=== PATIENT | female | born 2000 | race African-American/Black ===

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

== ENCOUNTER 2018-06-08 13:43 | Emergency (ER) ==
[2018-06-08 13:50] VITALS: BP 105/67; TEMP 98.4; BMI 22.8
--- NOTE | 2018-06-08 14:40 | ED.PDOC ---
General ED Provider: Dr. CHERYL MARTINEZ Chief Complaint: Syncope Stated Complaint: Syncopal episode. currnently on period. heavey flow. changing and became lighthed Time Seen by Physician: 13:30 Mode of Arrival: Walk-In Information Source: Patient Primary Care Provider: CHERYL PISANO Nursing and Triage Documentation Reviewed and Agree: Yes Does patient meet sepsis criteria?: No System Inflammatory Response Syndrome: Not Applicable Sepsis Protocol: For patient's 13 years and over: Temp is 96.8 and below OR 101 and greater Pulse >90 BPM Resp >20/minute Acutely Altered Mental Status Are patient's symptoms suggestive of a new infection, such as: -Pneumonia -Skin, Soft Tissue -Endocarditis -UTI -Bone, Joint Infection -Implantable Device -Acute Abdominal Infection -Wound Infection -Meningitis -Blood Stream Catheter Infection -Unknown Neurological Complaint Exam - Syncope/Near Syncope Complaint/Exam Onset/Duration: 1 hr Symptoms Are: Resolved Episodes Lasting: Minutes Number of Episodes: 1 Episodes Witnessed: No Loss of Consciousness: No Associated Head Trauma: No Activity at Onset: With exertion Aggravating: Position change Alleviating: Reports: Position change Associated Signs and Symptoms: Reports: Lightheadedness, Dizziness. Denies: Pain, Decreased oral intake, Vomiting, Diarrhea, GI blood loss, Short of air, Chest pain, Palpitations, Diaphoresis, Weakness, AMS, Numbness, Headache, Seizure, Remote head trauma, Recent head trauma Cardiac Risk Factors: Reports: None GI Bleed Risk Factors: Reports: None Dysrhythmia Risk Factors: Reports: None Related Surgical History: Reports: None JVD Present: No Carotid Bruit Present: No Nystagmus Present: No Gag Reflex Present: No Meningeal Signs Positive: No Focal Weakness: Present: None Focal Sensory Loss: Present: None Gait: Normal [id number]: Normal Findings Heel to Toe Normal: Yes Differential Diagnoses: Hypovolemia, Vasovagal Episode Quality Indicators for Cardiac Chest Pain: EKG in 10min. Review of Systems - Review Of Systems Constitutional: Reports: No symptoms Eyes: Reports: No symptoms Ears, Nose, Mouth, Throat: Reports: No symptoms Respiratory: Reports: No symptoms Cardiac: Reports: No symptoms, Palpitations GI: Reports: No symptoms : Reports: No symptoms Musculoskeletal: Reports: No symptoms Skin: Reports: No symptoms Neurological: Reports: No symptoms Endocrine: Reports: No symptoms Hematologic/Lymphatic: Reports: No symptoms All Other Systems: Reviewed and Negative Past Medical History - Past Medical History Previously Healthy: Yes Endocrine: Reports: None Cardiovascular: Reports: None Respiratory: Reports: None Hematological: Reports: None Gastrointestinal: Reports: None Genitourinary: Reports: None Neuro/Psych: Reports: None Musculoskeletal: Reports: None Cancer: Reports: None Last Menstrual Period: YESTERDAY - Surgical History General Surgical History: Reports: None - Family History Family History: Reports: None - Social History Smoking Status: Never smoker Hx Substance Use: No Alcohol Screening: None Physical Exam - Physical Exam Appearance: Well-appearing, No pain distress, Well-nourished Ill-appearing: None Pain Distress: None Eyes: SHON, EOMI, Conjunctiva clear ENT: Ears normal, Nose normal, Oropharynx normal Respiratory: Airway patent, Breath sounds clear, Breath sounds equal, Respirations nonlabored Cardiovascular: RRR, Pulses normal, No rub, No murmur GI/: Soft, Nontender, No masses, Bowel sounds normal, No Organomegaly Musculoskeletal: Normal strength, ROM intact, No edema, No calf tenderness Skin: Warm, Dry, Normal color Neurological: Sensation intact, Motor intact, Reflexes intact, Cranial nerves intact, Alert, Oriented Psychiatric: Affect appropriate, Mood appropriate Re-Evaluation - Re-Evaluation Time of Re-Evaluation: 17:00 Status: Improved Vital Signs Stable: Yes Appearance: NAD Lungs: Clear Skin: Warm and Dry Neuro: Alert and Oriented X3 CV: RRR Critical Care Note - Critical Care Note Total Time (mins): 60 Course - Course Hematology/Chemistry: 06/08/18 14:52 06/08/18 14:52 Orders, Labs, Meds: Lab Review 06/08/18 06/08/18 06/08/18 14:52 14:52 14:52 WBC 5.49 RBC 4.88 Hgb 9.1 L Hct 31.7 L MCV 65.0 L MCH 18.6 L MCHC 28.7 L RDW Coeff of Gayathri 19.3 H Plt Count 179 Immature Gran % (Auto) 0.2 Neut % (Auto) 76.9 Lymph % (Auto) 11.3 Burke % (Auto) 9.8 Eos % (Auto) 1.6 Baso % (Auto) 0.2 Immature Gran # (Auto) 0.0 Neut # (Auto) 4.2 Lymph # (Auto) 0.6 Burke # (Auto) 0.5 Eos # (Auto) 0.1 Baso # (Auto) 0.0 Hypochromasia 1+ Anisocytosis 1+ Microcytosis 1+ D-Dimer (Manual) 1203.42 Sodium 142.8 Potassium 3.08 L Chloride 105.1 Carbon Dioxide 25.7 Anion Gap 15.08 BUN 13.6 Creatinine 0.61 Estimated GFR (MDRD) 152.00 BUN/Creatinine Ratio 22.29 Glucose 102.0 Calcium 9.90 Total Bilirubin 0.59 AST 36.7 H ALT 33.5 Alkaline Phosphatase 79.8 Total Protein 7.88 Albumin 4.51 Globulin 3.37 Albumin/Globulin Ratio 1.33 Urine Color Urine Clarity Urine pH Ur Specific [place] Urine Protein Urine Glucose (UA) Urine Ketones Urine Blood Urine Nitrite Urine Bilirubin Urine Urobilinogen Ur Leukocyte Esterase Urine Microscopic RBC Urine Microscopic WBC Ur Squamous Epith Cells Urine Mucus Urine Test Influ A Molecular Assay Influ B Molecular Assay 06/08/18 06/08/18 06/08/18 15:00 15:00 16:12 WBC RBC Hgb Hct MCV MCH MCHC RDW Coeff of Gayathri Plt Count Immature Gran % (Auto) Neut % (Auto) Lymph % (Auto) Burke % (Auto) Eos % (Auto) Baso % (Auto) Immature Gran # (Auto) Neut # (Auto) Lymph # (Auto) Burke # (Auto) Eos # (Auto) Baso # (Auto) Hypochromasia Anisocytosis Microcytosis D-Dimer (Manual) Sodium Potassium Chloride Carbon Dioxide Anion Gap BUN Creatinine Estimated GFR (MDRD) BUN/Creatinine Ratio Glucose Calcium Total Bilirubin AST ALT Alkaline Phosphatase Total Protein Albumin Globulin Albumin/Globulin Ratio Urine Color Yellow Urine Clarity Clear Urine pH 6.0 Ur Specific [place] >=1.030 Urine Protein 2+ Urine Glucose (UA) Negative Urine Ketones 4+ Urine Blood 3+ Urine Nitrite Negative Urine Bilirubin 1+ Urine Urobilinogen 1.0 Ur Leukocyte Esterase Negative Urine Microscopic RBC 50-100 Urine Microscopic WBC 0-2 Ur Squamous Epith Cells Not present Urine Mucus 1+ Urine Test Negative Influ A Molecular Assay Negative by naat Influ B Molecular Assay Negative by naat Orders Category Date Time Status EKG-(ED ONLY) Stat CARDIO 06/08/18 14:35 Completed NPO REMINDER: IMAGING ONCE CARE 06/08/18 15:59 Completed CBC W/ AUTO DIFF Stat LAB 06/08/18 14:52 Completed CMP [COMPREHENSIVE METABOLIC PANEL] Stat LAB 06/08/18 14:52 Completed D-DIMER Stat LAB 06/08/18 14:52 Completed FLU A & B MOLECULAR [FLU A/B MOLECULAR] Stat LAB 06/08/18 15:00 Completed RBC MORPHOLOGY Stat LAB 06/08/18 14:52 Completed UA [URINALYSIS C & S IF INDICATED] Stat LAB 06/08/18 15:00 Completed URINE Stat LAB 06/08/18 16:12 Completed Potassium Chloride [K-Dur] MEDS 06/08/18 17:06 Discontinued 20 meq PO ONCE STA CT CHEST PE PROTOCOL Stat RADS 06/08/18 15:58 Completed Medications Discontinued Medications Generic Name Dose Route Start Last Admin Trade Name Alexandr PRN Reason Stop Dose Admin Potassium Chloride 20 meq 06/08/18 17:06 06/08/18 17:13 K-Dur PO 06/08/18 17:07 20 meq ONCE STA Administration Vital Signs: Temp Pulse Resp BP Pulse Ox 06/08/18 13:43 98.4 F 65 20 105/67 99 Departure - Departure Time of Disposition: 17:00 Disposition: HOME SELF-CARE Discharge Problem: Vaso vagal episode, Breast density Instructions: Syncope (ED) Condition: Good Pt referred to PMD for follow-up: Yes (1wk) IPMP verified?: No Additional Instructions: Stay well hydrated Follow up Dr Pisano in 1 wk Allergies/Adverse Reactions: Allergies almond Adverse Reaction (Verified 06/08/18 13:49) apple Adverse Reaction (Verified 06/08/18 13:49) Home Medications: Ambulatory Orders 1 [No Reported Medications] 06/08/18 Disposition Discussed With: Patient, Family
[2018-06-08 16:18] LABS: URINE PREGNANCY TEST NEGATIVE (NEGATIVE)
--- NOTE | 2018-06-08 17:01 | CT ---
EXAM: CTA CHEST (PE PROTOCOL) HISTORY: Syncope, elevated D-dimer TECHNIQUE: CTA chest with intravenous contrast. Multiplanar images were provided with 3-D reconstru ctions. 100 mL Omnipaque. COMPARISON: None FINDINGS: No pulmonary arterial filling defect. Normal thoracic aorta. Normal heart size. No pericardial eff usion. Lungs are clear. Normal vascularity. No pleural fluid or pneumothorax. Within the lower lateral aspect of the right breast there is a 2.5 x 2.0 cm opacity which may simply represent asymmetric breast tissue distribution. A nodule is not excluded. IMPRESSION: 1. No pulmonary arterial thromboembolism. 2. Lungs are clear. 3. Asymmetric opacity within the lower lateral right breast. Consider physical exam and mammographi c evaluation if indicated.
[2018-06-08] MEDS ORDERED: K-DUR PO STA (17:06)
== END 2018-06-08 17:55 | disposition home or self-care (01) ==
LOC: ED 13:43
DX: R55 Syncope and collapse (principal); R42 Dizziness and giddiness; N64.89 Other specified disorders of breast
CPT/HCPCS: 36415; 80053; 81001; 81025; 85008; 85025; 85379; 87502; 93005; 93010; 99283